=== PATIENT | female | born 1990 | race Caucasian/White ===

== ENCOUNTER 2018-03-02 10:41 | Emergency (ER) | payer OTHER, MEDICAID ==
[2018-03-02 11:06] VITALS: BP 119/82
--- NOTE | 2018-03-02 12:31 | XRAY Report ---
Procedure Date: 03/02/2018 Accession Number: [id number] / [id number] Procedure: XR - Foot 3 View RT CPT Code: FULL RESULT: EXAM: RIGHT FOOT RADIOGRAPHY EXAM DATE: 03/02/2018 12:22 PM. CLINICAL HISTORY: Board fell on right foot 4 days ago. Toes are bruised. No swelling. COMPARISON: None. TECHNIQUE: 3 nonweightbearing views. FINDINGS: Bones: Normal. No fractures or bone lesions. Joints: Normal. No subluxations. Soft Tissues: Normal. No focal soft tissue swelling. IMPRESSION: Normal foot radiography. No acute osseous abnormality. [facility]
--- NOTE | 2018-03-02 12:31 | ED Physician Documentation ---
PD HPI LOWER EXT INJURY - Stated complaint Stated Complaint: FT PX - Chief complaint Chief Complaint: Ext Problem - History obtained from History obtained from: Patient - History of Present Illness PD HPI LOW EXT INJURY LOCATION: Right, Foot Type of injury: Blunt / blow (A large board dropped on her foot and has persistent pain, it happened at work, she works in maintenance at [employer]. It happened 5 days ago. She can walk but has difficulty walking.) Review of Systems Constitutional: reports: Reviewed and negative Nose: reports: Reviewed and negative Throat: reports: Reviewed and negative PD PAST MEDICAL HISTORY - Past Medical History Past Medical History: Yes Psych: Depression - Present Medications Home Medications: Ambulatory Orders Medication Instructions Recorded Confirmed Citalopram [CeleXA] 10 mg PO ONCE 03/02/18 03/02/18 - Allergies Allergies/Adverse Reactions: Allergies Allergy/AdvReac Type Severity Reaction Status Date / Time fluoxetine [From Prozac] Allergy Hives Verified 03/02/18 11:07 - Social History Does the pt smoke?: No Smoking Status: Never smoker PD ED PE NORMAL - Vitals Vital signs reviewed: Yes - General General: Alert and oriented X 3, No acute distress - Extremities Extremities: Other (Tender to the distal second and third metacarpals with ecchymosis in the same area. No limited range of motion.) - Neuro Neuro: Alert and oriented X 3, Normal speech Results - Vitals Vitals: Vital Signs - 24 hr 03/02/18 11:01 Temperature 36.8 C Heart Rate 106 H Respiratory 12 Rate Blood Pressure 119/82 H O2 Saturation 99 Oxygen O2 Source Room air PD MEDICAL DECISION MAKING - Sepsis Event Vital Signs: Vital Signs - 24 hr 03/02/18 11:01 Temperature 36.8 C Heart Rate 106 H Respiratory 12 Rate Blood Pressure 119/82 H O2 Saturation 99 Oxygen O2 Source Room air Departure - Departure Disposition: 01 Home, Self Care Clinical Impression: Contusion of right foot Qualifiers: Encounter type: initial encounter Qualified Code(s): S90.31XA - Contusion of right foot, initial encounter Condition: Good Record reviewed to determine appropriate education?: Yes Instructions: ED Contusion Foot Comments: Ibuprofen as needed for pain, recheck with your doctor in a week if not improved. Your blood pressure was elevated today on check into the emergency department. This does not mean that you have hypertension, it is a common phenomenon to come to the emergency department and have elevated blood pressure. I recommend that you see your primary care physician within the week to have it rechecked when you are feeling better. Forms: Activity restrictions Discharge Date/Time: 03/02/18 12:35
== END 2018-03-02 12:35 | disposition home or self-care (01) ==
LOC: EDSEX → ED 10:41
DX: S90.31XA Contusion of right foot, initial encounter (principal); W20.8XXA Other cause of strike by thrown, projected or falling object, initial encounter; Y99.0 Civilian activity done for income or pay; R03.0 Elevated blood-pressure reading, without diagnosis of hypertension
CPT/HCPCS: 1040M; 73630; 99282